=== PATIENT | female | born 1960 | race Caucasian/White ===

== ENCOUNTER 2024-03-05 02:24 | Emergency (ER) | payer BC, SELFPAY ==
--- NOTE | 2024-03-05 02:29 | ED.GENMED ---
History of Present Illness
General
Chief Complaint: Alcohol Problem
Source: patient
Time Seen by Provider: 03/05/24 02:29
History of Present Illness
History of Present Illness:
63-year-old female presents to the emergency room via ambulance because she is feeling depressed and anxious. Patient states that she is feeling lonely because her daughter went back to [facility]. She has a history of alcoholism. She states has
been clean for 2 years but did begin drinking again over the past couple months. She drinks when she goes out but denies drinking at home. Tonight she endorses having about 4 drinks. Denies recreational drug use. Denies suicidal ideations.
Past History
Past History
ED Past Medical History: Arrthythmia (a-fib), Hypercholesterolemia, Psychiatric (depression) and Other
ED Past Surgical History: None
Social History
Tobacco: Non-smoker
Alcohol: Daily (Spritzers with low alcohol 5 daily, wine 3-4 glasses)
Drug: None
Personal:
Living: alone (has partial custody of 16yr old daughter)
Employment: Employed
Phy Exam
Physical Exam
Physical Exam:
General: Awake, Alert, Oriented X3. No acute distress, mildly intoxicated
Vitals: unremarkable
Head: Atraumatic
Eyes: Pupils equal, EOMI
Throat: Airway intact, no exudates
Neck: Trachea midline
Lungs: Clear and equal b/l
Heart: Regular rate, no murmurs
Abd: Soft, Nontender, No pulsatile mass
Neuro: Nonfocal
Skin: Warm, dry, no rash
Extremities: pulses equal b/l, no edema
Scores
Withdrawal Assessment of Alcohol
Withdrawal Assessment Completed?: Not applicable
Course
Orders/Labs/Results
Orders:
Orders
03/05/24 02:29
Crisis Consult Urgent
Reason for Consult: depression and anxiety
Vital Signs
Initial and Last Documented VS:
Initial Vital Signs
Pulse Ox
95
03/05/24 02:27
Last Documented Vital Signs
Temp Pulse BP Pulse Ox
97.8 F 70 101/56 99
03/05/24 02:33 03/05/24 06:00 03/05/24 06:02 03/05/24 06:02
MDM/Problems Addressed
MDM/Problems Addressed:
Patient presents stating that she needed someone to talk to because of depression and anxiety. She did meet with crisis who provided her with resources. Patient denies suicidal thoughts. Offered the opportunity speak to [facility] for alcohol rehab
which she declines. No medical issue and needed treatment.
*Critical Care Note
Total Time (30-74mins, 75-104mins- exclusive of procedures): Not Applicable
ED Attending Note
-
Portions of this chart may have been created with voice recognition software.� Occasional wrong word or��sound alike� substitutions may have occurred due to the inherent limitations of voice recognition software.
Discharge Plan
Departure
Patient Disposition: Home (Routine Discharge)
Date of Disposition: 03/05/24
Time of Disposition: 05:29
Patient with high blood pressure during this ER visit?: No
Condition: Good
Discharge Problem:
Alcohol intoxication, Depression
Instructions: Alcohol Use Disorder (DC), Depression, Adult ED
Prescriptions:
No Action
Unobtainable
0
Referrals:
UNKNOWN - PT NOT,INTERVIEWE [Family Provider] -
Interventions
Interventions:
*Risk Screen - Suicide Last Done: 03/05/24 02:29
*General Assessment Last Done: 03/05/24 02:26
*Neglect/Abuse Screening Last Done: 03/05/24 02:29
ED- Fall Risk Assessment Last Done: 03/05/24 03:38
*ED COVID-19 Vaccine History Last Done: 03/05/24 02:29
*Nursing Disposition Last Done: 03/05/24 06:40
ED- Neurological Assessment Last Done: 03/05/24 02:29
ED-Psychological Assessment Last Done: 03/05/24 02:29
Discharge Date and Time
Discharge Date/Time: 03/05/24 06:41
Print Language: INDIAN
[2024-03-05 02:32] VITALS: BMI 28.1
[2024-03-05 02:33] VITALS: BP 108/70
[2024-03-05 03:00] VITALS: BP 95/48
[2024-03-05 04:00] VITALS: BP 102/56
[2024-03-05 05:06] VITALS: BP 103/48
[2024-03-05 06:02] VITALS: BP 101/56
== END 2024-03-05 06:41 | disposition home or self-care (01) ==
LOC: EMR 02:24
PROVIDERS: EMERGENCY PHYSICIAN Emergency Medicine
DX: F10.129 Alcohol abuse with intoxication, unspecified (principal); F32.A Depression, unspecified; E78.00 Pure hypercholesterolemia, unspecified
CPT/HCPCS: 99283